=== PATIENT | female | born 1980 | race Caucasian/White ===

== ENCOUNTER 2018-07-06 03:58 | Emergency (ER) | payer OTHER ==
[~2018-07-06] VITALS: Ht 154.9 cm; Wt 107.1 kg
[2018-07-06 04:06] VITALS: Ht 154.9 cm; Wt 107.1 kg
[2018-07-06 05:19] LABS: UA SPECIFIC GRAVITY 1.015 (1.005-1.035); microscopic required? YES; urine erythrocyte TRACE (NEGATIVE)
[2018-07-06 06:01] VITALS: BP 126/76
== END 2018-07-06 06:01 | disposition home or self-care (01) ==
LOC: ED 03:58
PROVIDERS: Emergency Medicine
DX: R30.0 Dysuria (principal); R35.0 Frequency of micturition; Z88.2 Allergy status to sulfonamides; J45.909 Unspecified asthma, uncomplicated; F41.9 Anxiety disorder, unspecified

== ENCOUNTER 2019-10-04 16:36 | Emergency (ER) | payer OTHER ==
[~2019-10-04] VITALS: Ht 154.9 cm; Wt 106.1 kg
[2019-10-04 16:43] VITALS: BP 139/74; Ht 154.9 cm; Wt 106.1 kg
== END 2019-10-04 17:33 | disposition home or self-care (01) ==
LOC: ED 16:36
DX: N39.0 Urinary tract infection, site not specified (principal); J45.909 Unspecified asthma, uncomplicated; F41.9 Anxiety disorder, unspecified; Z88.2 Allergy status to sulfonamides

== ENCOUNTER 2020-01-17 10:49 | Emergency (ER) | payer OTHER ==
[~2020-01-17] VITALS: Ht 152.4 cm; Wt 112.0 kg
[2020-01-17 10:53] VITALS: Ht 152.4 cm; Wt 112.0 kg
[2020-01-17 13:52] VITALS: BP 122/61
== END 2020-01-17 13:52 | disposition home or self-care (01) ==
LOC: ED 10:49
DX: M71.22 Synovial cyst of popliteal space [Baker], left knee (principal); M25.562 Pain in left knee; J45.909 Unspecified asthma, uncomplicated; Z88.2 Allergy status to sulfonamides; Z90.89 Acquired absence of other organs